=== PATIENT | male | born 1960 | race Caucasian/White ===

== ENCOUNTER 2024-08-25 14:36 | Inpatient (IN) | payer OTHER ==
[~2024-08-25] VITALS: Ht 167.6 cm; Wt 79.4 kg
[2024-08-25 14:55] VITALS: BP 144/81; PULSE 78; RESP 18; TEMP 97.3; O2SAT 99
[2024-08-25] MEDS: KETOROLAC 30 MG/ML VIAL IVP ONE (16:17)
[2024-08-25] MEDS: ONDANSETRON 4 MG/2 ML VIAL IVP ONE ×2 (16:17→19:30)
[2024-08-25 16:32] LABS: BASOPHILS # (AUTO) 0.1 K/uL (0.00-0.22); BASOPHILS % (AUTO) 0.6 % (0.0-2.0); EOSINOPHILS # (AUTO) 0.1 K/uL (0-0.4); EOSINOPHILS % (AUTO) 0.8 % (0.0-4.0); HEMATOCRIT 47.5 % (36-52); HEMOGLOBIN 15.7 g/dL (12.0-18.0); LYMPHOCYTES # (AUTO) 0.7 K/uL (2.0-11.5); LYMPHOCYTES % (AUTO) 4.9 % (20.5-51.1); MEAN CORPUSCULAR HEMOGLOBIN 31 pg (27-31); MEAN CORPUSCULAR HGB CONC 33 g/dL (33-37); MEAN CORPUSCULAR VOLUME 93.6 fL (80-94); MONOCYTES % (AUTO) 6.9 % (1.7-9.3); NEUTROPHILS # (AUTO) 12.1 K/uL (1.8-7.7); NEUTROPHILS % (AUTO) 86.8 % (42.2-75.2); PLATELET COUNT (AUTO) 281 K/uL (140-450); RED BLOOD CELL COUNT(AUTO) 5.08 MIL/uL (4.20-6.10); RED CELL DISTRIBUTION WIDTH 13.9 % (11.6-13.7); WHITE BLOOD COUNT (AUTO) 13.9 K/uL (4.8-10.8)
[2024-08-25 16:47] LABS: ANION GAP 11.7 (8-16); CALCIUM 8.5 mg/dL (8.5-10.1); CARBON DIOXIDE 28.3 mmol/L (21-32); CREATININE 0.6 mg/dL (0.6-1.3)
[2024-08-25 16:54] LABS: ALBUMIN 3.6 g/dL (3.4-5.0); BILIRUBIN,DIRECT 0.1 mg/dL (0.0-0.3); TOTAL PROTEIN, SERUM 7.4 g/dL (6.4-8.2)
[2024-08-25 16:55] LABS: TOTAL BILIRUBIN 1.1 mg/dL (0.0-1.0)
[2024-08-25] MEDS ORDERED: NAPR-1704 PO (17:48)
[2024-08-25] MEDS ORDERED: ONDA-188 PO (17:48)
[2024-08-25 18:32] LABS: APPEARANCE,URINE CLEAR (CLEAR); BILIRUBIN,URINE NEGATIVE (NEGATIVE); BLOOD, URINE NEGATIVE (NEGATIVE); COLOR,URINE YELLOW (YELLOW); LEUKOCYTE ESTERASE ,URINE NEGATIVE (NEGATIVE); NITRITE, URINE NEGATIVE (NEGATIVE); PROTEIN,URINE NEGATIVE (NEGATIVE); UGLUCOSE 3+ (NEGATIVE); UROBILINOGEN,URINE 0.2 EU/dL (0.2 - 1)
[2024-08-25] MEDS ORDERED: BENA10TA81 PO (20:07)
[2024-08-25] MEDS ORDERED: SITA100T8 PO (20:07)
[2024-08-25] MEDS ORDERED: EMPA25TA PO (20:07)
[2024-08-25] MEDS ORDERED: ASPI-1794 PO (20:07)
[2024-08-25] MEDS ORDERED: METF-352 PO (20:07)
[2024-08-25] MEDS ORDERED: ATOR80TA27 PO (20:07)
[2024-08-25] MEDS ORDERED: EZET10TA50 PO (20:07)
[2024-08-25] MEDS ORDERED: GLIM-24 PO (20:07)
[2024-08-25] MEDS ORDERED: PIOG45TA39 PO (20:07)
[2024-08-25] MEDS ORDERED: ACETAMINOPHEN 325 MG TAB PO PRN (22:30)
[2024-08-25] MEDS ORDERED: ONDANSETRON 4 MG/2 ML VIAL IVP PRN (22:30)
[2024-08-25] MEDS: NACL 0.9% 1,000 ML IV SCH (22:51)
[2024-08-26 06:53] LABS: BASOPHILS % (AUTO) 0.1 % (0.0-2.0); EOSINOPHILS % (AUTO) 0.4 % (0.0-4.0); HEMATOCRIT 45.9 % (36-52); HEMOGLOBIN 15.1 g/dL (12.0-18.0); LYMPHOCYTES # (AUTO) 0.7 K/uL (2.0-11.5); LYMPHOCYTES % (AUTO) 7.2 % (20.5-51.1); MEAN CORPUSCULAR HEMOGLOBIN 31 pg (27-31); MEAN CORPUSCULAR HGB CONC 33 g/dL (33-37); MEAN CORPUSCULAR VOLUME 93.5 fL (80-94); MONOCYTES # (AUTO) 0.5 K/uL (0.8-1.0); MONOCYTES % (AUTO) 5.4 % (1.7-9.3); NEUTROPHILS # (AUTO) 7.8 K/uL (1.8-7.7); NEUTROPHILS % (AUTO) 86.9 % (42.2-75.2); PLATELET COUNT (AUTO) 266 K/uL (140-450); RED BLOOD CELL COUNT(AUTO) 4.91 MIL/uL (4.20-6.10); RED CELL DISTRIBUTION WIDTH 13.6 % (11.6-13.7)
[2024-08-26] MEDS: HYDROcodone/APAP 5/325 MG 1 TAB TAB PO PRN (07:10)
[2024-08-26 07:26] LABS: ALBUMIN 2.9 g/dL (3.4-5.0); ANION GAP 11.5 (8-16); CALCIUM 7.7 mg/dL (8.5-10.1); CARBON DIOXIDE 27.3 mmol/L (21-32); CREATININE 0.7 mg/dL (0.6-1.3); MAGNESIUM 1.8 mg/dL (1.8-2.4); POTASSIUM 3.8 mmol/L (3.5-5.1); TOTAL BILIRUBIN 1.2 mg/dL (0.0-1.0); TOTAL PROTEIN, SERUM 5.9 g/dL (6.4-8.2)
[2024-08-26 09:00] VITALS: PULSE 74; RESP 18; O2SAT 95
[2024-08-26] MEDS: MEDS-TO-BEDS MC SCH (09:24)
[2024-08-26 12:00] VITALS: BP 120/63; PULSE 74; RESP 17; TEMP 97.9; O2SAT 94
[2024-08-26] MEDS: DOCUSATE SODIUM 250 MG GELCAP PO SCH (12:15)
[2024-08-26] MEDS: MAGNESIUM HYDROXIDE 2400 MG/30 ML UDC PO SCH (12:15)
[2024-08-26 16:00] VITALS: BP 150/74; PULSE 76; RESP 18; TEMP 98; O2SAT 94
[2024-08-26 20:00] VITALS: BP 128/66; PULSE 77; RESP 18; TEMP 98; O2SAT 95
[2024-08-27 04:00] VITALS: BP 114/64; PULSE 63; RESP 16; TEMP 96.6; O2SAT 96
[2024-08-27] MEDS: MORPHINE SULFATE 2 MG/ML SYR IVP PRN (04:23)
[2024-08-27 08:00] VITALS: BP 122/70; PULSE 72; PULSE 77; RESP 18; TEMP 97.6; O2SAT 95
[2024-08-27] MEDS ORDERED: PANT40EC PO (11:12)
[2024-08-27] MEDS ORDERED: DOCU-299 PO (11:12)
[2024-08-27 12:46] VITALS: BP 122/70; PULSE 72; RESP 18; TEMP 98.4
[2024-08-27 14:02] LABS: FLU A ANTIGEN negative (NEGATIVE); FLU B ANTIGEN negative (NEGATIVE)
== END 2024-08-27 15:00 | disposition home or self-care (01) | DRG 465 ==
LOC: MED 14:36 → MTU 22:30 → OBSVTOIN 22:30 → MMU 22:33 → UNDOADMOB 22:33 → MTU 22:33 → MMU 08-26 06:20 → MTU 08-26 06:20 → INTOOBSV 08-26 18:50 → OBSVTOIN 08-26 18:50
PROVIDERS: ADMIT Hospitalist; ATTEND Hospitalist
DX: N20.0 Calculus of kidney (principal); R65.10 Systemic inflammatory response syndrome (SIRS) of non-infectious origin without acute organ dysfunction; K29.70 Gastritis, unspecified, without bleeding; K59.00 Constipation, unspecified; J02.9 Acute pharyngitis, unspecified; Z20.822 Contact with and (suspected) exposure to COVID-19; Z90.49 Acquired absence of other specified parts of digestive tract; Z79.899 Other long term (current) drug therapy
CPT/HCPCS: 36415; 76705; 80048; 80053; 80076; 81003; 82948; 83690; 83735; 85025; 87081; 96374; 96375; 96376; 99285; J1885; J2270; J2405; Q0092